=== PATIENT | male | born 1970 | race Caucasian/White ===

== ENCOUNTER → 2017-09-28 | Outpatient (CLI) | payer OTHER | END | disposition home or self-care (01) | LOC: CDC 12:35 | DX: Z01.810 Encounter for preprocedural cardiovascular examination (principal); R59.0 Localized enlarged lymph nodes; R94.31 Abnormal electrocardiogram [ECG] [EKG] | CPT/HCPCS: 93000 ==

== ENCOUNTER 2017-10-31 07:07 | Day surgery (SDC) | payer OTHER ==
[~2017-10-31] VITALS: Ht 179.1 cm; Wt 64.0 kg
[~2017-10-31 07:07] MED LIST: EFFEXOR75 MG PO; TYLENOL EXTRA500 MG PO; ZEGERID OTC 201 EACH PO; ZOFRAN8 MG PO
[2017-10-31] MEDS ORDERED: COMPAZINE5 MG PO (11:58)
[2017-10-31] MEDS ORDERED: ONDANSETRON HCL8 MG PO (11:59)
== END 2017-10-31 09:35 | disposition home or self-care (01) ==
LOC: CATH 07:07
DX: I87.2 Venous insufficiency (chronic) (peripheral) (principal); Z45.2 Encounter for adjustment and management of vascular access device; C85.90 Non-Hodgkin lymphoma, unspecified, unspecified site; F17.200 Nicotine dependence, unspecified, uncomplicated
CPT/HCPCS: C1752; C1894; J0690; J1644; J2250; J3010; S0020

== ENCOUNTER → 2018-01-20 | Outpatient (CLI) | payer OTHER ==
[~2018-01-20] MED LIST changes: +COMPAZINE5 MG PO; +ONDANSETRON HCL8 MG PO
== END | disposition home or self-care (01) ==
LOC: AMB 09:04
DX: Z45.2 Encounter for adjustment and management of vascular access device (principal); I87.8 Other specified disorders of veins; Z85.9 Personal history of malignant neoplasm, unspecified

== ENCOUNTER 2018-05-14 12:55 | Emergency (ER) | payer OTHER ==
[~2018-05-14] VITALS: Ht 180.3 cm; Wt 60.3 kg
[2018-05-14 13:31] LABS: HEMATOCRIT 40.4 % (38.0-50.0); HEMOGLOBIN 13.8 G/DL (12.5-16.6); MCH 31.8 PG (29.0-34.0); MCHC 34.2 G/DL (30.0-36.0); MCV 93.1 FL (86-99); PLATELET COUNT 323 K/uL (156-360); RBC DIS.WIDTH-CV 13.2 % (11.8-14.6); RBC DIS.WIDTH-SD 45.5 % (39-53); RED BLOOD COUNT 4.34 M/uL (4.00-5.50)
[2018-05-14 14:00] LABS: CHLORIDE 105 MEQ/L (99-109); POTASSIUM 4.1 MEQ/L (3.7-5.4); SODIUM 140 MEQ/L (136-147)
[2018-05-14 14:06] LABS: CREATININE 0.9 MG/DL (0.6-1.3); GFR ESTIMATE (CALCULATED) > 59 mL/min/ (58.99-99999); GLUCOSE 92 mg/dL (70-99); UREA NITROGEN (BUN) 9 mg/dL (9-23)
[2018-05-14] MEDS ORDERED: NORCO 5/3251 TABLET PO (15:47)
[2018-05-14 16:00] VITALS: BP 120/84
== END 2018-05-14 16:02 | disposition home or self-care (01) ==
LOC: EME 12:55
DX: R07.89 Other chest pain (principal); F17.200 Nicotine dependence, unspecified, uncomplicated; Z85.71 Personal history of Hodgkin lymphoma; Z92.21 Personal history of antineoplastic chemotherapy
CPT/HCPCS: 71046; 71275; 80048; 85027; 99281; 99284

== ENCOUNTER 2018-05-20 15:55 | Emergency (ER) | payer OTHER ==
[~2018-05-20] VITALS: Ht 180.3 cm; Wt 60.5 kg
[~2018-05-20 15:55] MED LIST changes: +NORCO 5/3251 TABLET PO
[2018-05-20 17:28] VITALS: BP 147/91
== END 2018-05-20 17:30 | disposition home or self-care (01) ==
LOC: EME 15:55
PROC: 0HQDXZZ Repair Right Lower Arm Skin, External Approach (ICD-10-PCS; principal; 2018-05-20)
DX: S61.511A Laceration without foreign body of right wrist, initial encounter (principal); W26.0XXA Contact with knife, initial encounter; F12.90 Cannabis use, unspecified, uncomplicated; Z85.72 Personal history of non-Hodgkin lymphomas
CPT/HCPCS: 99281; 99284